=== PATIENT | female | born 1980 | race Caucasian/White ===

== ENCOUNTER → 2016-09-22 | Outpatient (CLI) | payer BC ==
[~2016-09-22] MED LIST: no medications
--- NOTE | 2016-09-22 13:40 | Diagnostic Imaging Report ---
PROCEDURE: CT abdomen and pelvis without contrast. TECHNIQUE: Multiple contiguous axial images were obtained through the abdomen and pelvis without the use of intravenous contrast. INDICATION: Abdominal pain. Left upper quadrant pain. AVAILABLE COMPARISONS: None. FINDINGS: Liver shows no focal abnormality. No bile duct dilatation is present. Gallbladder and spleen are negative. Adrenals are negative. There is a 1.7 x 1 cm hypodensity in the anterior aspect of the body of the pancreas that is nonspecific. It might be a cyst. The kidneys are negative for stone, hydronephrosis or other lesion. Aorta is negative. No pathologically enlarged lymph nodes are identified. No bowel wall thickening, free air or free fluid is. Identified. Uterus is anteflexed. No pelvic masses. Urinary bladder is unremarkable. No osteolytic or osteoblastic lesion is identified. IMPRESSION: 1. Nonspecific likely incidental focal focal pancreatic abnormality. Followup MRI of the pancreas in 6 months is suggested. 2. Otherwise negative abdomen and pelvis CT. 3. Report called to Dr. Stauffer by Dr. Zarco at time of dictation Dictated by: Dictated on workstation # [id number]
== END ==
LOC: RAD 11:44
PROVIDERS: ATTEND Family Medicine
DX: R10.12 Left upper quadrant pain (principal)
CPT/HCPCS: 74176